=== PATIENT | female | born 1965 | race Caucasian/White ===

== ENCOUNTER 2018-09-25 07:53 | Emergency (ER) | payer BC ==
--- NOTE | 2018-09-25 08:08 | UC ---
Skin Complaint HPI - HPI Summary HPI Summary: Patient is 52 year old female , who present today puncture wound of left foot yesterday. stepped on mary beth old staple yesterday. She reports that her last tetanus shot was in 2003. She pulled out the staple completely and nothing broke or was left behind . no bleeding . Some redenss and some pain , no discharge. Denies any fever, chills, cough chest pain or shortness of breath . Denies any abdominal pain , nausea or vomiting , diarrhea or constipation. - History of Current Complaint Time Seen by Provider: 09/25/18 08:05 Stated Complaint: LEFT FOOT CONCERN Hx Obtained From: Patient - Allergy/Home Medications Allergies/Adverse Reactions: Allergies Allergy/AdvReac Type Severity Reaction Status Date / Time No Known Allergies Allergy Verified 09/25/18 08:16 PMH/Surg Hx/FS Hx/Imm Hx - Additional Past Medical History Additional PMH: Past medical History:No significant past history Past surgical history: C section, knee arthroscopy Family history: non-contributory Social history: social alcohol, non smoker, no substance abuse. 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 Previously Healthy: Yes - Surgical History Surgical History: Yes Surgery Procedure, Year, and Place: 1993 C SECTION, [facility]. 1989 [place], [place]. 2012 LEFT TORN MENISCUS REPAIR, [place]. TONSILLECTOMY A CHILD - Family History Known Family History: Positive: Non-Contributory - Social History Alcohol Use: Weekly Alcohol Amount: WEEKENDS Substance Use Type: None Smoking Status (MU): Never Smoked Tobacco Review of Systems All Other Systems Reviewed And Are Negative: Yes Constitutional: Positive: Negative Skin: Positive: Rash, Other - left foot puncture wound ENT: Positive: Negative Respiratory: Positive: Negative Cardiovascular: Positive: Negative Gastrointestinal: Positive: Negative Genitourinary: Positive: Negative Motor: Positive: Negative Neurovascular: Positive: Negative Musculoskeletal: Positive: Negative Neurological: Positive: Negative Psychological: Positive: Negative Is Patient Immunocompromised?: No Physical Exam - Summary Physical Exam Summary: Physical Exam: Vital signs reviewed Const: Appears well. No signs of apparent distress present. Alert and oriented x 3. Musculo: Walks with a normal gait. Head/Face: Atraumatic, normocephalic on inspection. Eyes: EOMI and PERRLA in both eyes. Conjunctivae clear ENT: Hearing normal, TM normal appearing bilaterally . Respiratory: Respirations are unlabored. CVS: Regular rate and Rhythm, S1S2 normal , no murmurs identified. Extremities: Peripheral circulation is grossly normal. Pulses 2+ Abdomen : Soft non tende Skin:left foot plantar aspect - small puncture wound, no bleeding or discharge, no pus point . slightly tender. mild local erythema. Neuro: Cranial nerves II to XII intact, motor and sensory intact. DTR Intact bilaterally. Mood is normal. Affect is normal. Triage Information Reviewed: Yes Vital Signs Reviewed: Yes Images Feet (Multiple View): 1 - puncture wound Course/Dx - Course Course Of Treatment: During the visit today, we discussed the finding, TDAP updated , SInce mary beth nail in foot, cover with prophyllactic antibiotics. I will prescribe the medication to the pharmacy . Advised her to monitor for any worsening of redness , pain or any drainage. Patient expressed understanding . - Diagnoses Provider Diagnosis: Puncture wound of left foot Discharge - Sign-Out/Discharge Documenting (check all that apply): Patient Departure All imaging exams completed and their final reports reviewed: No Studies - Discharge Plan Condition: Stable Disposition: HOME Prescriptions: Cephalexin CAP* [Keflex CAP*] 500 mg PO BID 7 Days #14 cap Patient Education Materials: Puncture Wound (ED) Referrals: Hermelinda Sesay MD [Primary Care Provider] - If Needed Additional Instructions: Start taking antibiotics . It has been prescribed to the pharmacy . Follow up with your primary care doctor if needed Patients blood pressure slightly high( pre-hypertensive range) in Urgent care today , plan follow up with PCP. Return to Urgent care or go to ER if no improvement. - Billing Disposition and Condition Condition: STABLE Disposition: Home
[2018-09-25 08:16] VITALS: BP 122/68
[2018-09-25] MEDS ORDERED: Tetan/Diph/Pertus SYR(Tdap)* 0.5 ML SYR(BOOSTRIX) use SYR IM ONE (08:36)
== END 2018-09-25 08:49 | disposition home or self-care (01) ==
LOC: UCCORT 07:53
DX: S91.332A Puncture wound without foreign body, left foot, initial encounter (principal); W22.8XXA Striking against or struck by other objects, initial encounter; Y92.9 Unspecified place or not applicable; Z23 Encounter for immunization
CPT/HCPCS: 90471; 90715; 99202; G0463